=== PATIENT | male | born 1960 | race Asian ===

== ENCOUNTER 2023-01-27 08:26 | Emergency (ER) | payer OTHER ==
[~2023-01-27] VITALS: Ht 154.9 cm; Wt 71.2 kg
[2023-01-27] MEDS ORDERED: DIAZEPAM 5 MG TAB PO STA (08:57)
[2023-01-27] MEDS ORDERED: KETOROLAC TROMETHAMINE 30 MG/ML VIAL IM ONE (09:00)
[2023-01-27] MEDS ORDERED: GLIPIZIDE10 MG PO (09:03)
[2023-01-27] MEDS ORDERED: JARDIANCE25 MG PO (09:03)
[2023-01-27] MEDS ORDERED: OMEPRAZOLE40 MG PO (09:03)
[2023-01-27] MEDS ORDERED: DOXAZOSIN MESYLA4 MG PO (09:03)
[2023-01-27] MEDS ORDERED: LOSARTAN POTASS50 MG PO (09:03)
[2023-01-27] MEDS ORDERED: LEVOTHYROXINE100 MCG PO (09:03)
[2023-01-27] MEDS ORDERED: ATORVASTATIN CA20 MG PO (09:03)
[2023-01-27] MEDS ORDERED: METHOCARBAMOL500 MG PO (10:49)
[2023-01-27 10:54] VITALS: O2SAT 99
== END 2023-01-27 11:00 | disposition home or self-care (01) ==
LOC: ER 08:36
DX: M47.812 Spondylosis without myelopathy or radiculopathy, cervical region (principal); M62.838 Other muscle spasm; I10 Essential (primary) hypertension; E11.9 Type 2 diabetes mellitus without complications; E78.5 Hyperlipidemia, unspecified; E03.9 Hypothyroidism, unspecified; K21.9 Gastro-esophageal reflux disease without esophagitis; M54.9 Dorsalgia, unspecified; G89.29 Other chronic pain
CPT/HCPCS: 72125; 99284; J1885

== ENCOUNTER 2024-03-11 12:43 | Inpatient (IN) | payer MEDICARE, OTHER ==
[~2024-03-11] VITALS: Ht 167.6 cm; Wt 75.9 kg
[~2024-03-11 12:43] MED LIST: ATORVASTATIN CA20 MG PO; DOXAZOSIN MESYLA4 MG PO; GLIPIZIDE10 MG PO; JARDIANCE25 MG PO; LEVOTHYROXINE100 MCG PO; LOSARTAN POTASS50 MG PO; METHOCARBAMOL500 MG PO; OMEPRAZOLE40 MG PO
[2024-03-11 13:10] VITALS: TEMP 97.7
[2024-03-11 13:38] LABS: BASOPHILS % 0.1 % (0.0-1.0); EOSINOPHILS # (AUTO) 0.1 (0.0-0.4); EOSINOPHILS % 0.3 % (0.0-6.0); HEMATOCRIT 29.6 % (38.2-49.6); HEMOGLOBIN 9.7 g/dL (14.0-18.0); LYMPHOCYTES # (AUTO) 1.1 (1.0-3.2); LYMPHOCYTES % 7.5 % (18.0-39.1); MEAN CORPUSCULAR HEMOGLOBIN 33.2 pg (28-32); MEAN CORPUSCULAR HGB CONC 32.8 g/dL (31-35); MEAN CORPUSCULAR VOLUME 101.4 fL (81-99); NEUTROPHILS # (AUTO) 12.3 (2.1-6.9); NEUTROPHILS % 84.7 % (38.7-80.0); PLATELET COUNT 197 x10e3/uL (140-360); RED BLOOD COUNT 2.92 x10e6/uL (4.3-5.7); RED CELL DISTRIBUTION WIDTH 12.6 % (11.7-14.4); WHITE BLOOD COUNT 14.48 x10e3/uL (4.8-10.8)
[2024-03-11] MEDS: ONDANSETRON HCL INJ 2MG/ML 2ML 2 MG/ML VIAL IV STA (13:43)
[2024-03-11 14:07] LABS: ALBUMIN/GLOBULIN RATIO 0.6 (0.8-2.0); ANION GAP 13.8 mmol/L (8-16); BILIRUBIN,TOTAL 0.2 mg/dL (0.2-1.2); CALCIUM 8.1 mg/dL (8.4-10.2); CREATININE, SERUM 4.55 mg/dL (0.72-1.25); POTASSIUM 4.8 mmol/L (3.5-5.1); TOTAL PROTEIN 5.6 g/dL (6.5-8.1)
[2024-03-11 14:09] LABS: CORONAVIRUS COVID-19 AG NEGATIVE (NEGATIVE); INFLUENZA A AG NEGATIVE (NEGATIVE); INFLUENZA B AG NEGATIVE (NEGATIVE)
[2024-03-11] MEDS: SODIUM CHLORIDE 0.9% 1000ML 1,000 ML IV ONE (15:41)
[2024-03-11] MEDS ORDERED: ONDANSETRON HCL INJ 2MG/ML 2ML 2 MG/ML VIAL IV PRN (16:30)
[2024-03-11 17:00] VITALS: PULSE 71; RESP 15
[2024-03-11] MEDS: SODIUM CHLORIDE 0.9% 1000ML 1,000 ML IV SCH (18:06)
[2024-03-11 18:44] VITALS: BP 120/58; PULSE 90; RESP 20; TEMP 97.7; O2SAT 99
[2024-03-11 20:00] VITALS: BP 148/70; PULSE 71; RESP 16; TEMP 97.7; O2SAT 99
[2024-03-11 22:11] VITALS: BP 148/70; PULSE 71; RESP 18; TEMP 97.7; O2SAT 99
[2024-03-11 23:36] LABS: BACTERIA,URINE MANY /HPF; BILIRUBIN,URINE NEGATIVE (NEGATIVE); CLARITY,URINE SL CLOUDY (CLEAR); COLOR,URINE YELLOW (YELLOW); GLUCOSE, URINE 1+ (NEGATIVE); KETONES,URINE NEGATIVE (NEGATIVE); LEUKOCYTE ESTERASE ,URINE NEGATIVE (NEGATIVE); NITRITE,URINE NEGATIVE (NEGATIVE); PH,URINE 5.5 (5 - 7); PROTEIN,URINE DIPSTICK >=300 (NEGATIVE); URINE UROBILINOGEN 0.2 mg/dL (0.2 - 1)
[2024-03-11 23:37] LABS: EPITHELIAL CELLS,URINE FEW /LPF; MUCUS,URINE MODERATE (RARE); RENAL EPITHELIAL CELLS,URINE FEW
[2024-03-12] VITALS (8 sets, daily range): BP systolic 127–150; BP diastolic 59–77; PULSE 64–75; RESP 16–21; TEMP 97.6–98.5; O2SAT 97–100
[2024-03-12 07:01] LABS: BASOPHILS % 0.2 % (0.0-1.0); EOSINOPHILS # (AUTO) 0.2 (0.0-0.4); EOSINOPHILS % 2.1 % (0.0-6.0); HEMOGLOBIN 8.4 g/dL (14.0-18.0); LYMPHOCYTES # (AUTO) 2.8 (1.0-3.2); LYMPHOCYTES % 23.8 % (18.0-39.1); MEAN CORPUSCULAR HEMOGLOBIN 32.7 pg (28-32); MEAN CORPUSCULAR HGB CONC 32.3 g/dL (31-35); MEAN CORPUSCULAR VOLUME 101.2 fL (81-99); MONOCYTES # (AUTO) 0.8 (0.2-0.8); MONOCYTES % 7.3 % (4.4-11.3); NEUTROPHILS # (AUTO) 7.7 (2.1-6.9); NEUTROPHILS % 66.2 % (38.7-80.0); PLATELET COUNT 190 x10e3/uL (140-360); RED BLOOD COUNT 2.57 x10e6/uL (4.3-5.7); RED CELL DISTRIBUTION WIDTH 12.8 % (11.7-14.4); WHITE BLOOD COUNT 11.58 x10e3/uL (4.8-10.8)
[2024-03-12 07:31] LABS: ALBUMIN 1.7 g/dL (3.5-5.0); ALBUMIN/GLOBULIN RATIO 0.6 (0.8-2.0); ANION GAP 11.8 mmol/L (8-16); BILIRUBIN,TOTAL 0.2 mg/dL (0.2-1.2); CALCIUM 7.9 mg/dL (8.4-10.2); CREATININE, SERUM 4.21 mg/dL (0.72-1.25); POTASSIUM 4.8 mmol/L (3.5-5.1); TOTAL PROTEIN 4.6 g/dL (6.5-8.1)
[2024-03-12] MEDS ORDERED: HYDRALAZINE HCL50 MG PO (10:14)
[2024-03-12] MEDS ORDERED: AMLODIPINE-ATO1 EAC3 (10:14)
[2024-03-12] MEDS ORDERED: ONDANSETRON HCL INJ 2MG/ML 2ML 2 MG/ML VIAL IV PRN (10:30)
[2024-03-12] MEDS: PANTOPRAZOLE SOD 40 MG TABEC PO SCH (11:26)
[2024-03-12] MEDS: GLIPIZIDE 5 MG TAB PO SCH (11:26)
[2024-03-12] MEDS: INSULIN LISPRO 100 UNIT/1 ML 3ML VIAL SQ SCH (11:30)
[2024-03-12 15:05] LABS: CREATININE,URINE RANDOM 59.71 mg/dL (63-166)
[2024-03-12 15:24] LABS: TOTAL PROTEIN, URINE 377.8 mg/dL (1-14)
[2024-03-12 16:59] LABS: ABG HCO3 13 mmol/L (22-26); ABG PCO2 31 mmHg (35-45); ABG PH 7.22 (7.35-7.45); ABG PO2 96 mmHg (80-105); ABG TCO2 14
[2024-03-12] MEDS: SODIUM BICARBONATE 8.4% VIAL 50 ML in SODIUM CHLORIDE 0.45% 1,000 ML IV SCH (21:36)
[2024-03-12] MEDS: ATORVASTATIN 20 MG TAB PO SCH (21:36)
[2024-03-13] VITALS (9 sets, daily range): BP systolic 133–173; BP diastolic 64–89; PULSE 65–100; RESP 18–22; TEMP 97.1–99.3; O2SAT 95–100
[2024-03-13] MEDS: LEVOTHYROXINE SODIUM 100 MCG TAB PO SCH (05:23)
[2024-03-13 06:13] LABS: BASOPHILS % 0.1 % (0.0-1.0); EOSINOPHILS # (AUTO) 0.2 (0.0-0.4); EOSINOPHILS % 2.2 % (0.0-6.0); HEMATOCRIT 25.1 % (38.2-49.6); HEMOGLOBIN 8.1 g/dL (14.0-18.0); LYMPHOCYTES # (AUTO) 4.4 (1.0-3.2); LYMPHOCYTES % 39.4 % (18.0-39.1); MEAN CORPUSCULAR HEMOGLOBIN 32.8 pg (28-32); MEAN CORPUSCULAR HGB CONC 32.3 g/dL (31-35); MEAN CORPUSCULAR VOLUME 101.6 fL (81-99); MONOCYTES # (AUTO) 0.9 (0.2-0.8); MONOCYTES % 8.4 % (4.4-11.3); NEUTROPHILS # (AUTO) 5.5 (2.1-6.9); NEUTROPHILS % 49.3 % (38.7-80.0); PLATELET COUNT 187 x10e3/uL (140-360); RED BLOOD COUNT 2.47 x10e6/uL (4.3-5.7); RED CELL DISTRIBUTION WIDTH 12.9 % (11.7-14.4); WHITE BLOOD COUNT 11.06 x10e3/uL (4.8-10.8)
[2024-03-13 06:45] LABS: ANION GAP 11.3 mmol/L (8-16); CALCIUM 7.6 mg/dL (8.4-10.2); CREATININE, SERUM 4.08 mg/dL (0.72-1.25); POTASSIUM 4.3 mmol/L (3.5-5.1)
[2024-03-13 06:47] LABS: MAGNESIUM 1.5 MG/DL (1.3-2.1); PHOSPHORUS 4.7 MG/DL (2.3-4.7)
[2024-03-13] MEDS: DEXTROSE 50% SYRINGE 50 ML IV PRN (07:00)
[2024-03-13 07:11] LABS: THYROID STIMULATING HORMONE 44.801 uIU/mL (0.350-4.940)
[2024-03-13] MEDS: HYDRALAZINE HCL 20 MG/ML VIAL IV PRN (08:29)
[2024-03-13] MEDS ORDERED: ALBUTEROL/IPRATROPIUM 3 ML NEB NEB PRN (08:45)
[2024-03-13] MEDS: NIFEDIPINE CR 30 MG TAB PO SCH (08:56)
[2024-03-13] MEDS: Doxycycline IV 100 MG in SODIUM CHLORIDE 0.9% 100 ML IV SCH (08:56)
[2024-03-13] MEDS: TAMSULOSIN HCL 0.4 MG CAP PO SCH (08:56)
[2024-03-13] MEDS: METHYLPREDNISOLONE SOD SUCC 40 MG/ML VIAL 1ML IV ONE (08:58)
[2024-03-13] MEDS: HEPARIN SOD (PORCINE) 5,000 UNIT/ML VIAL SC SCH (09:00)
[2024-03-13] MEDS: ALBUTEROL/IPRATROPIUM 3 ML NEB NEB SCH (09:22)
[2024-03-13 14:22] LABS: ABG HCO3 13 mmol/L (22-26); ABG PCO2 31 mmHg (35-45); ABG PH 7.22 (7.35-7.45); ABG PO2 96 mmHg (80-105); ABG TCO2 14
[2024-03-13] MEDS: NIFEDIPINE CR 30 MG TAB PO ONE (17:10)
[2024-03-13] MEDS ORDERED: LIDOCAINE HCL 1% 30ML-PF VIAL ONE (18:51)
[2024-03-13] MEDS: ATORVASTATIN 40 MG TAB PO SCH (22:09)
[2024-03-14] VITALS (11 sets, daily range): BP systolic 132–156; BP diastolic 69–84; PULSE 69–102; RESP 18–22; TEMP 98–98.8; O2SAT 95–100
[2024-03-14 05:41] LABS: HEMATOCRIT 27.6 % (38.2-49.6); HEMOGLOBIN 8.8 g/dL (14.0-18.0); LYMPHOCYTES # (AUTO) 0.9 (1.0-3.2); LYMPHOCYTES % 10.3 % (18.0-39.1); MEAN CORPUSCULAR HEMOGLOBIN 33.5 pg (28-32); MEAN CORPUSCULAR HGB CONC 31.9 g/dL (31-35); MEAN CORPUSCULAR VOLUME 104.9 fL (81-99); MONOCYTES # (AUTO) 0.9 (0.2-0.8); MONOCYTES % 10.6 % (4.4-11.3); NEUTROPHILS # (AUTO) 6.6 (2.1-6.9); NEUTROPHILS % 77.8 % (38.7-80.0); PLATELET COUNT 199 x10e3/uL (140-360); RED BLOOD COUNT 2.63 x10e6/uL (4.3-5.7); RED CELL DISTRIBUTION WIDTH 12.1 % (11.7-14.4); WHITE BLOOD COUNT 8.43 x10e3/uL (4.8-10.8)
[2024-03-14] MEDS: LEVOTHYROXINE SODIUM 75 MCG TAB PO SCH (05:52)
[2024-03-14 05:59] LABS: INR 0.96; PROTHROMBIN TIME 13.4 seconds (11.9-14.5)
[2024-03-14 06:08] LABS: ALBUMIN 1.8 g/dL (3.5-5.0); ALBUMIN/GLOBULIN RATIO 0.5 (0.8-2.0); ANION GAP 14.6 mmol/L (8-16); BILIRUBIN,TOTAL 0.3 mg/dL (0.2-1.2); CALCIUM 8.6 mg/dL (8.4-10.2); CREATININE, SERUM 4.28 mg/dL (0.72-1.25); POTASSIUM 4.6 mmol/L (3.5-5.1); TOTAL PROTEIN 5.3 g/dL (6.5-8.1)
[2024-03-14 06:37] LABS: % IRON SATURATION 23 % (15-50); IRON 58 ug/dL (65-175); TOTAL IRON BINDING CAPACITY 256 ug/dL (261-478); TRANSFERRIN 183 mg/dL (174-364)
[2024-03-14] MEDS: NIFEDIPINE CR 30 MG TAB PO SCH (09:00)
[2024-03-14] MEDS ORDERED: HEPARIN SOD (PORCINE) 1000 UNIT/ML SDV IV PRN (09:15)
[2024-03-14] MEDS ORDERED: MANNITOL 25% 12.5GM/50 ML VIAL IV PRN (09:15)
[2024-03-14] MEDS ORDERED: SODIUM CHLORIDE 0.9% 1000ML 2,000 ML IV PRN (09:15)
[2024-03-15] VITALS (11 sets, daily range): BP systolic 124–157; BP diastolic 59–84; PULSE 72–92; RESP 16–22; TEMP 97.9–100.4; O2SAT 94–100
[2024-03-15 06:00] LABS: CALCIUM 8.4 mg/dL (8.4-10.2); CREATININE, SERUM 3.44 mg/dL (0.72-1.25)
[2024-03-15] MEDS ORDERED: EPOETIN ALFA-EPBX 10,000 UNIT/ML VIAL SC SCH (20:00)
[2024-03-15] MEDS: CARVEDILOL 3.125 MG TAB PO SCH (21:36)
[2024-03-15] MEDS: EPOETIN ALFA-EPBX 10,000 UNIT/ML VIAL SC SCH (23:19)
[2024-03-16] VITALS (12 sets, daily range): BP systolic 121–169; BP diastolic 69–87; PULSE 63–77; RESP 18–20; TEMP 97.9–99.1; O2SAT 94–100
[2024-03-16 05:42] LABS: BASOPHILS % 0.2 % (0.0-1.0); EOSINOPHILS # (AUTO) 0.4 (0.0-0.4); EOSINOPHILS % 4.3 % (0.0-6.0); HEMATOCRIT 27.1 % (38.2-49.6); LYMPHOCYTES # (AUTO) 1.9 (1.0-3.2); LYMPHOCYTES % 20.4 % (18.0-39.1); MEAN CORPUSCULAR HGB CONC 33.2 g/dL (31-35); MEAN CORPUSCULAR VOLUME 99.3 fL (81-99); MONOCYTES # (AUTO) 1.4 (0.2-0.8); MONOCYTES % 14.7 % (4.4-11.3); NEUTROPHILS # (AUTO) 5.5 (2.1-6.9); NEUTROPHILS % 58.6 % (38.7-80.0); PLATELET COUNT 200 x10e3/uL (140-360); RED BLOOD COUNT 2.73 x10e6/uL (4.3-5.7); RED CELL DISTRIBUTION WIDTH 12.3 % (11.7-14.4); WHITE BLOOD COUNT 9.35 x10e3/uL (4.8-10.8)
[2024-03-16 06:01] LABS: ANION GAP 12.9 mmol/L (8-16); CALCIUM 8.1 mg/dL (8.4-10.2); CREATININE, SERUM 2.77 mg/dL (0.72-1.25); POTASSIUM 3.9 mmol/L (3.5-5.1)
[2024-03-16 06:52] LABS: HEPATITIS B SURFACE AB QUANT 19.9 mIU/mL (Immunity>10); HEPATITIS BE ANTIGEN Negative (Negative)
[2024-03-16] MEDS: CARVEDILOL 12.5 MG TAB PO SCH (21:38)
[2024-03-17] VITALS (10 sets, daily range): BP systolic 126–157; BP diastolic 61–77; PULSE 64–75; RESP 16–19; TEMP 97–98.8; O2SAT 92–100
[2024-03-17 05:50] LABS: CALCIUM 7.9 mg/dL (8.4-10.2); CREATININE, SERUM 3.29 mg/dL (0.72-1.25)
[2024-03-17 05:57] LABS: HEPATITIS BE ANTIBODY Non Reactive (Negative)
[2024-03-17] MEDS ORDERED: MIDAZOLAM HCL 2 MG/2 ML VIAL ONE (09:23)
[2024-03-17] MEDS ORDERED: FENTANYL CITRATE/PF 100MCG/2 ML INJ ONE (09:23)
[2024-03-17] MEDS ORDERED: HEPARIN SOD (PORCINE) 1000 UNIT/ML SDV ONE (09:23)
[2024-03-17] MEDS ORDERED: SODIUM CHLORIDE 0.9% 250ML 250 ML ONE (09:24)
[2024-03-17] MEDS ORDERED: CEFTRIAXONE 1 GM VIAL ONE (09:29)
[2024-03-18] VITALS (14 sets, daily range): BP systolic 118–165; BP diastolic 56–79; PULSE 60–76; RESP 16–20; TEMP 98.8–100.3; O2SAT 94–100
[2024-03-18 07:45] LABS: HEPATITIS B SURFACE AG (P) Negative (Negative)
[2024-03-18] MEDS: SODIUM CHLORIDE 0.9% 250ML 250 ML ONE (08:31)
[2024-03-18] MEDS ORDERED: METOPROLOL TARTRATE 25 MG TAB PO SCH (10:45)
[2024-03-18] MEDS: CARVEDILOL 12.5 MG TAB PO SCH (21:29)
[2024-03-18] MEDS: ACETAMINOPHEN 325 MG TAB PO PRN (23:53)
[2024-03-19] VITALS (8 sets, daily range): BP systolic 124–140; BP diastolic 64–70; PULSE 60–82; RESP 17–22; TEMP 98–99.1; O2SAT 95–100
== END 2024-03-19 16:50 | disposition home or self-care (01) | DRG 291 ==
LOC: ER 13:18 → ERHOLD 16:28 → MED/SURG2 18:15
PROVIDERS: ADMIT Internal Medicine; ATTEND Internal Medicine
PROC: 4A033R1 Measurement of Arterial Saturation, Peripheral, Percutaneous Approach (ICD-10-PCS; 2024-03-12)
PROC: 4A033R1 Measurement of Arterial Saturation, Peripheral, Percutaneous Approach (ICD-10-PCS; 2024-03-12)
PROC: 02H633Z Insertion of Infusion Device into Right Atrium, Percutaneous Approach (ICD-10-PCS; 2024-03-13)
PROC: B548ZZA Ultrasonography of Superior Vena Cava, Guidance (ICD-10-PCS; 2024-03-13)
PROC: 5A1D70Z Performance of Urinary Filtration, Intermittent, Less than 6 Hours Per Day (ICD-10-PCS; 2024-03-14)
PROC: 5A1D70Z Performance of Urinary Filtration, Intermittent, Less than 6 Hours Per Day (ICD-10-PCS; 2024-03-15)
PROC: 0JH63XZ Insertion of Tunneled Vascular Access Device into Chest Subcutaneous Tissue and Fascia, Percutaneous Approach (ICD-10-PCS; principal; 2024-03-17)
PROC: 02H633Z Insertion of Infusion Device into Right Atrium, Percutaneous Approach (ICD-10-PCS; 2024-03-17)
PROC: 5A1D70Z Performance of Urinary Filtration, Intermittent, Less than 6 Hours Per Day (ICD-10-PCS; 2024-03-17)
PROC: B5181ZA Fluoroscopy of Superior Vena Cava using Low Osmolar Contrast, Guidance (ICD-10-PCS; 2024-03-17)
DX: I13.2 Hypertensive heart and chronic kidney disease with heart failure and with stage 5 chronic kidney disease, or end stage renal disease (principal); I50.23 Acute on chronic systolic (congestive) heart failure; J18.9 Pneumonia, unspecified organism; J96.01 Acute respiratory failure with hypoxia; N18.6 End stage renal disease; N17.9 Acute kidney failure, unspecified; E87.20 Acidosis, unspecified; N39.0 Urinary tract infection, site not specified; J44.0 Chronic obstructive pulmonary disease with (acute) lower respiratory infection; J44.1 Chronic obstructive pulmonary disease with (acute) exacerbation; I25.10 Atherosclerotic heart disease of native coronary artery without angina pectoris; E78.5 Hyperlipidemia, unspecified; E11.22 Type 2 diabetes mellitus with diabetic chronic kidney disease; N40.0 Benign prostatic hyperplasia without lower urinary tract symptoms; R19.7 Diarrhea, unspecified; D64.9 Anemia, unspecified; E03.9 Hypothyroidism, unspecified; K57.30 Diverticulosis of large intestine without perforation or abscess without bleeding; R11.2 Nausea with vomiting, unspecified; E11.649 Type 2 diabetes mellitus with hypoglycemia without coma; I16.0 Hypertensive urgency; K21.9 Gastro-esophageal reflux disease without esophagitis; T38.3X5A Adverse effect of insulin and oral hypoglycemic [antidiabetic] drugs, initial encounter; Y92.230 Patient room in hospital as the place of occurrence of the external cause; E66.9 Obesity, unspecified; Z68.27 Body mass index [BMI] 27.0-27.9, adult; Z11.52 Encounter for screening for COVID-19; Z79.899 Other long term (current) drug therapy
CPT/HCPCS: 36415; 36556; 36558; 36600; 71045; 71250; 74176; 74470; 76770; 76937; 77001; 80048; 80053; 81001; 82550; 82570; 82607; 82746; 82805; 82948; 83036; 83540; 83690; 83735; 84100; 84156; 84443; 84466; 85025; 85610; 85730; 86706; 86707; 87040; 87340; 87350; 93005; 93306; 93880; 94640; 94799; 96372; 99152; 99284; C1752; C1769; C1892; J0360; J0690; J0692; J0696; J1644; J2003; J2150; J2250; J2405; J2919; J7030; J7050; J7799